=== PATIENT | female | born 1985 | race African-American/Black ===

== ENCOUNTER 2019-12-07 04:03 | Inpatient (IN) | payer OTHER ==
[~2019-12-07] VITALS: Ht 157.5 cm; Wt 60.8 kg
[2019-12-07] MEDS ORDERED: ACETAMINOPHEN 325MG TABLET PO ONE (06:30)
[2019-12-07] MEDS ORDERED: KETOROLAC 30MG/ML VIAL IV ONE (06:30)
[2019-12-07 06:49] LABS: CHLORIDE 115 mEq/L (98-107)
[2019-12-07 06:53] LABS: BASOPHILS % 0.3 % (0.0-2.0); EOSINOPHILS % 0.8 % (0.0-5.0); HEMATOCRIT. 40.1 % (36.0-48.0); LYMPHOCYTES % 39.5 % (20.0-50.0); MEAN CORPUSCULAR HEMOGLOBIN 30.3 pg (28.0-32.0); MEAN CORPUSCULAR VOLUME 86.7 fL (81.0-99.0); MEAN PLATELET VOLUME 8.4 fl (7.4-10.4); NEUTROPHILS % 48.4 % (40.0-76.0); PLATELET 282 x1000/uL (130-400); RED BLOOD CELL COUNT 4.62 mill/uL (4.2-5.4); RED CELL DISTRIBUTION WIDTH 13.2 % (11.6-14.6)
[2019-12-07 07:01] LABS: CLARITY URINE CLEAR (CLEAR); COLOR URINE YELLOW (YELLOW); KETONES URINE NEGATIVE (NEGATIVE); LEUKOCYTE ESTERASE URINE NEGATIVE (NEGATIVE); NITRITE URINE NEGATIVE (NEGATIVE); OCCULT BLOOD URINE 1+ (NEGATIVE); PH URINE 6.5 (4.5-8.0); PROTEIN URINE NEGATIVE (NEGATIVE); SPECIFIC GRAVITY URINE 1.006 (1.005-1.030); UROBILINOGEN URINE 0.2 E.U./dL (0.2-1.0)
[2019-12-07 07:14] LABS: B-HCG QUANTITATIVE 4429 mIU/mL (<3)
[2019-12-07] MEDS ORDERED: SODIUM CHLORIDE 0.9% 1,000 ML IV ONE (08:35)
[2019-12-07] MEDS: HYDROCODONE/ACETAMINOPHEN 5/325MG TABLET PO PRN ×3 (14:50→22:44)
[2019-12-07] MEDS: MISOPROSTOL 100MCG TABLET RC SCH ×3 (15:00→22:44)
[2019-12-07 16:50] VITALS: BP 105/65
[2019-12-07 17:00] VITALS: BP 105/65
[2019-12-07] MEDS ORDERED: ALBU2.5V13 IH (17:11)
[2019-12-07] MEDS ORDERED: PNV1TABL76 MT (17:11)
[2019-12-07] MEDS ORDERED: HYDROCODONE/ACETAMINOPHEN 5/325MG TABLET PO PRN (17:30)
[2019-12-07 20:25] VITALS: BP 106/62
[2019-12-08 00:28] VITALS: BP 103/74
[2019-12-08] MEDS: MISOPROSTOL 100MCG TABLET RC SCH (02:48)
[2019-12-08] MEDS: HYDROCODONE/ACETAMINOPHEN 5/325MG TABLET PO PRN ×2 (02:48→08:33)
[2019-12-08] MEDS: ONDANSETRON HCL 4MG/2ML INJ IV PRN ×2 (02:52→08:58)
[2019-12-08 04:00] VITALS: BP 147/108
[2019-12-08] MEDS ORDERED: MORPHINE SULFATE 2 MG/ML CPJ (NOT FOR IM USE) IV NR (05:00)
[2019-12-08] MEDS ORDERED: MORPHINE SULFATE 2 MG/ML CPJ (NOT FOR IM USE) IV PRN (06:45)
[2019-12-08] MEDS: LACTATED RINGERS 1,000 ML IV SCH ×2 (07:38→13:59)
[2019-12-08 08:00] VITALS: BP 120/81
[2019-12-08 08:47] LABS: HEMATOCRIT 37.6 % (36.0-48.0); HEMOGLOBIN 13.3 g/dL (12.0-16.0); MEAN CORPUSCULAR HEMOGLOBIN 30.7 pg (28.0-32.0); MEAN CORPUSCULAR VOLUME 86.7 fL (81.0-99.0); PLATELET 244 x1000/uL (130-400); RED BLOOD CELL COUNT 4.34 mill/uL (4.2-5.4)
[2019-12-08] MEDS ORDERED: MISOPROSTOL 200MCG TABLET RC NR (10:00)
[2019-12-08 12:00] VITALS: BP 125/80
[2019-12-08 16:00] VITALS: BP 99/45
[2019-12-08 20:00] VITALS: BP 92/50
[2019-12-08] MEDS ORDERED: POTASSIUM CHLORIDE 20MEQ TABLET SR PO NR (20:37)
[2019-12-09] VITALS: BP 96/55
[2019-12-09 04:00] VITALS: BP 113/51
[2019-12-09 06:56] LABS: HEMATOCRIT 30.7 % (36.0-48.0); HEMOGLOBIN 10.7 g/dL (12.0-16.0); MEAN CORPUSCULAR HEMOGLOBIN 30.1 pg (28.0-32.0); MEAN CORPUSCULAR VOLUME 86.5 fL (81.0-99.0); PLATELET 223 x1000/uL (130-400); RED BLOOD CELL COUNT 3.55 mill/uL (4.2-5.4); RED CELL DISTRIBUTION WIDTH 12.7 % (11.6-14.6)
[2019-12-09 08:00] VITALS: BP 118/70
[2019-12-09 09:26] VITALS: BP 118/70
== END 2019-12-09 10:00 | disposition home or self-care (01) | DRG 564 ==
LOC: ER 04:49 → 6EST 08:36 → CANRESERV 15:43 → ENRESERV 15:43
PROVIDERS: ADMIT Obstetrics & Gynecology; ATTEND Obstetrics & Gynecology
DX: O03.9 Complete or unspecified spontaneous abortion without complication (principal); D62 Acute posthemorrhagic anemia; E87.6 Hypokalemia; O99.011 Anemia complicating pregnancy, first trimester; O99.511 Diseases of the respiratory system complicating pregnancy, first trimester; O99.331 Smoking (tobacco) complicating pregnancy, first trimester; J45.909 Unspecified asthma, uncomplicated; F17.210 Nicotine dependence, cigarettes, uncomplicated; O03.83 Metabolic disorder following complete or unspecified spontaneous abortion; Z87.59 Personal history of other complications of pregnancy, childbirth and the puerperium
CPT/HCPCS: 36415; 76801; 80053; 81003; 84132; 84702; 85025; 85027; 86850; 86900; 99285; J2270; J2405; J7030; J7120